=== PATIENT | female | born 1935 | race African-American/Black ===

== ENCOUNTER → 2016-11-15 | Outpatient (CLI) | payer OTHER ==
[~2016-11-15] VITALS: Ht 157.5 cm; Wt 93.6 kg
[~2016-11-15] MED LIST: BAYER CHEWABLE81 MG PO; CARVEDILOL12.5 MG PO; DURAGESIC1 EAC2 TD; FENTANYL PO; JANUVIA 50 MG T50 MG PO; LASIX 40 MG TAB40 M2 PO; NORCO 10-325 T1 EACH PO; NORVASC5 MG PO; ONDANSETRON HCL4 M2 PO; RENAL-VITE TAB0.8 MG PO; VENTOLIN HFA 1818 GM INH; VITAMIN D1000 UNI1 PO; VOLTAREN GEL 1100 G2 TOP; ZANTAC 150MG T150 MG PO; ZOCOR20 MG PO; [UNRECOGNIZED DRUG - OTHER] PO
--- NOTE | ~2016-11-15 | HPC ---
[facility] [address] [place] [address] PAIN MANAGEMENT CONSULTATION Name: ROSA AZAR Room #: REG MARI Dimple.#: [id number] Admission: 11/15/16 Attend Phys: Duong Schultz DO Discharge: Date of : 36 Report #: [id number] THIS REPORT FOR: //name// CC: Chaim Schultz HISTORY OF PRESENT ILLNESS: The patient is an 81-year-old female, new to the pain clinic at [place]. She prior apparently had been seen at [facility] as an in hospital patient by Dr. Candido Schultz. She presents to the pain clinic today to establish care at the pain clinic. The patient was admitted to [facility] sometime ago for pain primarily in the right shoulder. 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 She was given steroid injection by Orthopedics in the hospital with really nominal efficacy. Started on Duragesic at 12 mcg in the hospital, gradually titrating up to 25 and then for the past three weeks 37 mcg q. 72 hours (125 mcg patch and 112 mcg patch). With this, she has continued to take a little bit of hydrocodone 10/325, typically 1-3 tablets a day with moderate efficacy. She rates pain anywhere from a 4 to a "10+" on a 0-10 visual analog scale. Pain is exacerbated with any and all movement. She dialyses 3 times a week, the shunt is in her right arm. Shunt has been present there for 6 years and significantly predates the pain in the right shoulder. She notes the pain is worse on days of dialysis as they do have to move her right arm around. The daughter notes that the patient had a "hard" fall in August with significant ecchymosis and this seems to be about the time that the pain got worse. Currently, the patient notes she has pain with movement of the right upper extremity that is continuous, steady, constant, periodic, intermittent, gnawing, throbbing, sharp, stabbing, shooting, and aching. REVIEW OF SYSTEMS: Complete review of systems is attached to the chart is gone with the patient. She is , seen in the company of her daughter who is supportive; this is the youngest of 6 children. She does not smoke, drink alcohol to excess. History of longstanding diabetes, currently treated with Januvia. Chronic renal failure again dialyzing three times a week for many years. Has an albuterol inhaler that she uses for p.r.n. asthma, though she uses it fairly infrequently. Hypertension treated with amlodipine, carvedilol and Lasix. Dyslipidemia for which she takes simvastatin. She has had surgery in her knees, lumbar radiculopathy, a hysterectomy and the aforementioned shunt creation in the right upper arm. She is retired. She has been retired for 30 years. Pain impact score is 39/70. PHYSICAL EXAMINATION: GENERAL: Reveals a 5 feet tall, 200 pound female, BMI is 37.7 kilograms per meter squared. [address] [address] PAIN MANAGEMENT CONSULTATION Name: DOEROSA Room #: REG CLIan Baxter#: [id number] Admission: 11/15/16 Attend Phys: Duong Schultz DO Discharge: Date of : 36 Report #: [id number] VITAL SIGNS: Blood pressure is 148/68, pulse 67, respirations 16. Cranial nerves 2-12 are grossly intact. HEENT: Pupils equal, reactive to light and accommodation. Extraocular muscles are intact. She is alert and oriented to person, place and time, judged to be a reasonable historian. NECK: Cervical range of motion is modestly limited. Thyroid is modestly enlarged, no nodules noted. MUSCULOSKELETAL: Significant decreased range of motion in the right shoulder to abduction and extension. Upper arm biceps, triceps and brachioradialis as well as hand grasp strength is diminished on the right compared to the left. Difficult to tell if this is due to effort related to pain, but I do not believe there is a neurogenic component. Again, there is no neural tensioning symptoms, a negative Lhermitte's. Deep tendon reflexes for the biceps, triceps, brachioradialis appeared to be symmetric. She has marked thoracic kyphosis and endomorphic build. HEART: Regular rhythmical without murmur. LUNGS: Sounds are distant, but clear. EXTREMITIES: Lower extremity strength is symmetric at 3-4/5 to all muscle groups tested. She does have +1 to 2 pretibial edema bilaterally. SKIN integument shows some ecchymosis, otherwise intact. DIAGNOSTIC STUDIES: There are no recent diagnostic studies available at this time. ASSESSMENT: Chronic pain syndrome, DJD, right shoulder requiring complex medication management, history of chronic renal failure on dialysis. RECOMMENDATION: Long discussion with the patient and daughter today about therapeutic options. Again, I think 37 mg of Duragesic is appropriate, though we would be loathe to continue escalating opiate. At this point, if she starts to show failure or tolerance, I would recommend rotating to a different narcotic. Morphine does have some renally excreted metabolites, methadone may be a better option. We will continue hydrocodone 10/325, 1-3 tablets a day. We did talk at length about trialing some Voltaren gel topically. Again, the systemic absorption is fairly low at 6-7%. Generally contraindicated for renal compromise, though patient is essentially anephric, so I do not think there should be any discernible negative side effects from judicious use of Voltaren gel topically. The patient was given 1 month of current medication. I will follow up at that time for reevaluation. Thank you for allowing me to participate in the patient's care. I will keep you abreast of her progress. [facility] [address] [place] [address] PAIN MANAGEMENT CONSULTATION Name: ROSA AZAR Room #: REG [facility].#: [id number] Admission: 11/15/16 Attend Phys: Duong Schultz DO Discharge: Date of : 36 Report #: [id number] The patient was discharged in good and stable condition after a prolonged visit, greater than 45 minutes was spent with the patient and her daughter reviewing therapeutic options and discussing our plans of care. By: [id number] Duong Schultz DO /nt
[2016-11-15 13:11] VITALS: BP 148/68
== END ==
LOC: PAIN 07:06
DX: M25.511 Pain in right shoulder (principal); G89.4 Chronic pain syndrome; M19.90 Unspecified osteoarthritis, unspecified site; I12.0 Hypertensive chronic kidney disease with stage 5 chronic kidney disease or end stage renal disease; N18.6 End stage renal disease; Z99.2 Dependence on renal dialysis; Z79.899 Other long term (current) drug therapy

== ENCOUNTER → 2016-12-13 | Outpatient (CLI) | payer OTHER ==
[~2016-12-13] VITALS: Ht 157.5 cm; Wt 93.4 kg
[~2016-12-13] MED LIST changes: +FENTANYL PA25 MCG/HR TRANSDERM
--- NOTE | ~2016-12-13 | HPC ---
[facility] [address] [place] [address] PAIN MANAGEMENT CONSULTATION Name: ROSA AZAR Room #: REG MARI Sahil#: [id number] Admission: 12/13/16 Attend Phys: Duong Schultz DO Discharge: Date of : 36 Report #: [id number] THIS REPORT FOR: //name// CC: Chaim Schultz HISTORY OF PRESENT ILLNESS: The patient is a very pleasant 81-year-old female, being treated for bilateral shoulder DJD, right greater than left, chronic renal failure, chronic pain syndrome, lumbar radiculopathy, requiring complex medication management. Last seen in the pain clinic on 11/15/2016. We had continued Duragesic at 37 mcg q. 72 hours (one 12 mcg patch and one 25 mcg patch) q. 72 hours. Continued hydrocodone 10/325. The patient is averaging about 3 a day, anywhere from 2-4. Doing reasonably well with this medication. I gave her some topical Voltaren gel to use conservatively. She thinks it is helpful as well. She presents to pain clinic today with her daughter. They are planning on a road trip for 10 days, heading to [place], and then back to [place] before coming back to [place]. The patient does dialyze 3 times a week. Currently, she uses [facility]. They have scheduled their drive such that she will have dialysis throughout their trip. She notes that right shoulder injection by orthopedist, while she was an inpatient at [facility], did not afford much relief. Left shoulder is getting little worse. She has had another fall since we last saw her. She is somewhat caught herself with left shoulder. PHYSICAL EXAMINATION: Today shows an 81-year-old female, BMI is about 38 kilograms per meter squared. Right shoulder has diminished range of motion. Abduction is about 50 degrees. Left shoulder is diminished, but abduction is about 60 degrees. Passive rotation of both shoulders is modestly limited with pain to passive and active rotation to both sides. Otherwise, the patient is alert and oriented to person, place, and time. Judged to be a reasonable historian. No problems with daytime somnolence, mental acuity changes or constipation. ASSESSMENT: Bilateral shoulder degenerative joint disease, right shoulder is somewhat worse than the left, but left becoming little more problematic. Chronic renal failure requiring dialysis, lumbar radiculopathy, chronic pain syndrome, requiring complex medication management, stable on baseline medications. We reviewed the fact that opiate medications are being used to provide analgesia adequate to support activities of daily living, not attempting to achieve a specific pain score on the 0-10 Visual Analog Scale. The current opiate medications are providing sufficient analgesia to allow the patient to participate in activities of daily living. The patient is not exhibiting any [address] [address] PAIN MANAGEMENT CONSULTATION Name: JAMEE AZARSA Cho Room #: REG MARI Baxter#: [id number] Admission: 12/13/16 Attend Phys: Duong Schultz DO Discharge: Date of : 36 Report #: [id number] aberrant behavior suggestive of drug diversion. The patient is not having any adverse reactions to medications. The patient is not suffering from daytime somnolence or mental acuity changes. The patient is managing opiate-induced constipation with appropriate nnig-okm-xdbrwhe agents and dietary considerations. The patient was counseled on concern for caution with operating a motor vehicle while using opiate medications. A physical exam was performed and the patient's functional status was evaluated. All patients with back pain were advised against the bed rest greater than 4 days and were advised to return to normal activities. Pain score assessment was noted and the treatment plan was reviewed with the patient. All current medications, both prescribed and OTC were reviewed and reconciled on the electronic medical record. Tobacco screening was accomplished and smoking cessation was advised when indicated. BMI was noted and diet/exercise modification was recommended for all patients following outside normal parameters. I reviewed with the patient today their responsibilities to safeguard prescription medications, reviewed their responsibility to utilize medications only as prescribed by the physician. They are to seek and receive pain medications only from 1 physician group ( [facility]). They are to use 1 pharmacy and keep the clinic informed if they change pharmacies. Their responsibilities include making followup visits in a timely fashion and to avoid abrupt discontinuation of medication usage. Their responsibilities further include bringing their medications (bottles from the pharmacy with residual pills) to the visit for possible confirmation of pill counts and the patient understands it is their responsibility to submit to random drug screens to ensure both that the medications prescribed are present, and that no other controlled substances are present. All prescriptions provided today were generated electronically. RECOMMENDATION: 1. Continue Duragesic, 12 mcg and 25 mcg patches used concurrently q. 72 hours. I have taken the liberty of writing for 30 days of these. 2. Hydrocodone 10/325 limit up to 3 tablets a day, dispense 90 tablets. 3. Continue Voltaren gel topically, does not require renewal. We did talk about proceeding with the left shoulder joint injection under fluoroscopy. We also talked at length about balance exercises to be done daily, and range of motion for both shoulders. Given the road trip, we suggest that she continue her 81 mg aspirin. She is having some ongoing lower extremity edema. They are working with hemodialysis to lower her "dry weight" target. She does have +2 pretibial edema in the lower extremity. I talked about exercise and walking to try and mobilize lower extremity edema fluid. [facility] [address] [place] [address] PAIN MANAGEMENT CONSULTATION Name: ROSA AZAR Room #: REG [facility] M.R.#: [id number] Admission: 12/13/16 Attend Phys: Duong Schultz DO Discharge: Date of : 36 Report #: [id number] Discharged in good and stable condition. Follow up in 4 weeks for reevaluation. We had a moderately prolonged visit today, spent reviewing, concurrent issues including dialysis while traveling, continuing current baseline narcotics (fentanyl transcutaneous), p.r.n. hydrocodone. Judicious use of topical Voltaren gel, balance exercises, range of motion for the shoulder, and therapeutic options including left shoulder joint injection under fluoroscopy. The patient was discharged in good and stable condition, after a 25-minute visit, greater than 50% of this time spent counseling the patient. <ELECTRONICALLY SIGNED> By: Duong Schultz DO 12/17/16 0856 [id number] Duong Schultz DO /nt
[2016-12-13 13:05] VITALS: BP 154/75
== END | disposition home or self-care (01) ==
LOC: PAIN 06:44
DX: M19.012 Primary osteoarthritis, left shoulder (principal); M19.011 Primary osteoarthritis, right shoulder; M54.16 Radiculopathy, lumbar region; G89.4 Chronic pain syndrome; N18.9 Chronic kidney disease, unspecified

== ENCOUNTER → 2017-01-10 | Outpatient (CLI) | payer OTHER ==
[~2017-01-10] VITALS: Ht 152.4 cm; Wt 92.5 kg
[~2017-01-10] MED LIST changes: +LINZESS145 MCG PO
[2017-01-10 13:18] VITALS: BP 157/70
== END | disposition home or self-care (01) ==
LOC: PAIN 06:47
DX: M19.012 Primary osteoarthritis, left shoulder (principal); M19.011 Primary osteoarthritis, right shoulder; N18.9 Chronic kidney disease, unspecified; E66.9 Obesity, unspecified; Z68.39 Body mass index [BMI] 39.0-39.9, adult

== ENCOUNTER → 2017-03-18 | Outpatient (CLI) | payer OTHER ==
[~2017-03-18] VITALS: Ht 152.4 cm; Wt 91.4 kg
[~2017-03-18] MED LIST changes: +DURAGESIC1 EACH TRANSDERM; +MOVANTIK25 MG PO; +STOOL SOFTENER100 M1 PO
--- NOTE | ~2017-03-18 | HPC ---
[facility] [address] [place] [address] PAIN MANAGEMENT CONSULTATION Name: ROSA AZAR Room #: REG MARI Dimple.#: [id number] Admission: 03/18/17 Attend Phys: Duong Schultz DO Discharge: Date of : 36 Report #: [id number] THIS REPORT FOR: //name// CC: Chaim Schultz DATE OF SERVICE: 03/18/2017 The patient is an 81-year-old female typically treated for DJD, left greater than right shoulder, chronic renal failure requiring dialysis, axial back pain, morbid obesity requiring high risk complex medication management. Component of opiate-induced constipation. She has been continued on Duragesic 37 mcg (one 25 mcg patch and one 12 mcg patch) with hydrocodone 10/325 for breakthrough, typically on the days if she dialyzes. With opiate-induced constipation, we trialed Linzess at last visit. Unfortunately, this really did not afford significant relief. She returns to pain clinic today in the company of her daughter who is supportive. She notes pain is fairly nominal at present, 2.5 on a VAS, primarily right shoulder and arm, left shoulder, some axial back pain when she dialyzes. She notes medications quite helpful, but again, does complain of opiate-induced constipation. PHYSICAL EXAMINATION: Relatively unchanged, pleasant 81-year-old female. BMI is elevated at 39.3 kilograms per meter squared. Blood pressure 148/78, pulse 82, respirations are 22. Alert and oriented to person, place and time, judged to be a reasonable historian. Limited range of motion of the shoulders, diffuse axial back pain. Gait is little bit antalgic, little bit ataxic, but she appears stable. RECOMMENDATION: Discussion with the patient and her daughter today about therapeutic options. They have stopped using the [facility] and changed their pharmacy choice to ____. The pharmacist there suggested that she may use a single 37.5 mcg of Duragesic patch, I am happy to write for this, so I did tell the family that in the past, this has typically been a non-generic item and may require ____. We reviewed the fact that opiate medications are being used to provide analgesia adequate to support activities of daily living, not attempting to achieve a specific pain score on the 0-10 Visual Analog Scale. The current opiate medications are providing sufficient analgesia to allow the patient to participate in activities of daily living. The patient is not exhibiting any aberrant behavior suggestive of drug diversion. The patient is not having any adverse reactions to medications. The patient is not suffering from daytime somnolence or mental acuity changes. The patient is managing opiate-induced [address] [address] PAIN MANAGEMENT CONSULTATION Name: ROSA AZAR Room #: REG MARI Baxter#: [id number] Admission: 03/18/17 Attend Phys: Duong Schultz DO Discharge: Date of : 36 Report #: [id number] constipation with appropriate kgxv-zlg-uxffasv agents and dietary considerations. The patient was counseled on concern for caution with operating a motor vehicle while using opiate medications. A physical exam was performed and the patient's functional status was evaluated. All patients with back pain were advised against the bed rest greater than 4 days and were advised to return to normal activities. Pain score assessment was noted and the treatment plan was reviewed with the patient. All current medications, both prescribed and OTC were reviewed and reconciled on the electronic medical record. Tobacco screening was accomplished and smoking cessation was advised when indicated. BMI was noted and diet/exercise modification was recommended for all patients following outside normal parameters. I reviewed with the patient today their responsibilities to safeguard prescription medications, reviewed their responsibility to utilize medications only as prescribed by the physician. They are to seek and receive pain medications only from 1 physician group ( [facility]). They are to use 1 pharmacy and keep the clinic informed if they change pharmacies. Their responsibilities include making followup visits in a timely fashion and to avoid abrupt discontinuation of medication usage. Their responsibilities further include bringing their medications (bottles from the pharmacy with residual pills) to the visit for possible confirmation of pill counts and the patient understands it is their responsibility to submit to random drug screens to ensure both that the medications prescribed are present, and that no other controlled substances are present. All prescriptions provided today were generated electronically. ASSESSMENT: Degenerative joint disease affecting bilateral shoulders, left greater than right, axial back pain, morbid obesity, chronic renal failure, on dialysis requiring high risk complex medication management, component of opiate-induced constipation. RECOMMENDATIONS: 1. We will rotate to a single 37.5 mcg Duragesic patch, dispensed #10 patches q. 72 hours. 2. Continue hydrocodone 10/325 up to 3 a day, Voltaren gel topically. 3. I have also started the patient on Movantik, I gave him prescription for 25 mg tablet, dispensed #20 to be used if no bowel movement in 24 hours. 4. Continue regular use of stool softeners, Metamucil and Colace. 5. Discharged in good and stable condition. Follow up in 2 months for reevaluation. By: [id number] Duong Schultz, DO /nt
[2017-03-18 14:38] VITALS: BP 148/78
== END | disposition home or self-care (01) ==
LOC: PAIN 07:26
DX: Z76.0 Encounter for issue of repeat prescription (principal); T40.2X5D Adverse effect of other opioids, subsequent encounter; K59.09 Other constipation; M19.011 Primary osteoarthritis, right shoulder; M19.012 Primary osteoarthritis, left shoulder; M54.5 Low back pain; N18.9 Chronic kidney disease, unspecified; E66.01 Morbid (severe) obesity due to excess calories; Z79.891 Long term (current) use of opiate analgesic; Z68.39 Body mass index [BMI] 39.0-39.9, adult; Z99.2 Dependence on renal dialysis; Z79.82 Long term (current) use of aspirin; Z79.899 Other long term (current) drug therapy

== ENCOUNTER → 2017-07-31 | Outpatient (CLI) | payer OTHER ==
[~2017-07-31] MED LIST changes: +CYMBALTA30 MG PO; +DURAGESIC1 EAC2 TRANSDERM; +FENTANYL1 EAC4 TRANSDERM; +MOBIC7.5 MG PO
== END ==
LOC: HYPER 06:49
DX: E11.622 Type 2 diabetes mellitus with other skin ulcer (principal); L98.411 Non-pressure chronic ulcer of buttock limited to breakdown of skin; L89.322 Pressure ulcer of left buttock, stage 2; L89.312 Pressure ulcer of right buttock, stage 2; R53.83 Other fatigue; R60.1 Generalized edema; E78.5 Hyperlipidemia, unspecified; E11.22 Type 2 diabetes mellitus with diabetic chronic kidney disease; I13.2 Hypertensive heart and chronic kidney disease with heart failure and with stage 5 chronic kidney disease, or end stage renal disease; I50.9 Heart failure, unspecified; N18.6 End stage renal disease; Z99.2 Dependence on renal dialysis; I25.10 Atherosclerotic heart disease of native coronary artery without angina pectoris; Z86.718 Personal history of other venous thrombosis and embolism

== ENCOUNTER → 2017-08-02 | Outpatient (CLI) | payer OTHER ==
[~2017-08-02] VITALS: Ht 152.4 cm; Wt 90.4 kg
--- NOTE | ~2017-08-02 | HPC ---
[facility] [address] [place] [address] PAIN MANAGEMENT CONSULTATION Name: ROSA AZAR Room #: REG MARI Dimple.#: [id number] Admission: 08/02/17 Attend Phys: Duong Schultz DO Discharge: Date of : 36 Report #: [id number] THIS REPORT FOR: //name// CC: Chaim Schultz The patient is an 81-year-old female, prior seen in the pain clinic 05/30/2017, continued on Duragesic 37 mcg, hydrocodone 10/325 for breakthrough pain, Movantik for opiate-induced constipation. She has DJD bilateral shoulders, axial back pain, chronic renal failure requiring dialysis, morbid obesity requiring high risk complex medication management. Last buccal drug swab 05/30/2017 was positive for hydrocodone and fentanyl as expected. No untoward findings were found. Returns to pain clinic today noting pain remains 8 on VAS, primarily RSD bilateral shoulders, left greater than right. PHYSICAL EXAMINATION: Vital signs stable. BMI elevated at 38.9 kilograms per meter squared. She did trip once in the past 3 months, simply "moving too quickly." She does not use a cane for balance. Fall seemed to be a unique issue. Legs do not "give out." She does have some hypertension, medicine list was reconciled today. Opiate consent to treat contract was signed 01/10/2017. Opiate risk assessment tool scores are in the low range. Pain impact score, however, is fairly high 65/70. She does have a new lesion in the sacral area. She started on a Silvadene with morphine topical compound. She is seeing the wound clinic. Does have some myofascial pain component with tenderness in the trapezius, splenius capitis and deltoid muscles. Again, pain is 8 on VAS. We reviewed the fact that opiate medications are being used to provide analgesia adequate to support activities of daily living, not attempting to achieve a specific pain score on the 0-10 Visual Analog Scale. The current opiate medications are providing sufficient analgesia to allow the patient to participate in activities of daily living. The patient is not exhibiting any aberrant behavior suggestive of drug diversion. The patient is not having any adverse reactions to medications. The patient is not suffering from daytime somnolence or mental acuity changes. The patient is managing opiate-induced constipation with appropriate ttyy-vph-myrpfdb agents and dietary considerations. The patient was counseled on concern for caution with operating a motor vehicle while using opiate medications. A physical exam was performed and the patient's functional status was evaluated. All patients with back pain were advised against the bed rest greater than 4 days and were advised to return to normal activities. Pain score assessment was noted and the treatment plan was reviewed with the patient. All current [address] [address] PAIN MANAGEMENT CONSULTATION Name: ROSA AZAR Room #: REG MARI Baxter#: [id number] Admission: 08/02/17 Attend Phys: Duong Schultz DO Discharge: Date of : 36 Report #: [id number] medications, both prescribed and OTC were reviewed and reconciled on the electronic medical record. Tobacco screening was accomplished and smoking cessation was advised when indicated. BMI was noted and diet/exercise modification was recommended for all patients following outside normal parameters. I reviewed with the patient today their responsibilities to safeguard prescription medications, reviewed their responsibility to utilize medications only as prescribed by the physician. They are to seek and receive pain medications only from 1 physician group ( [facility]). They are to use 1 pharmacy and keep the clinic informed if they change pharmacies. Their responsibilities include making followup visits in a timely fashion and to avoid abrupt discontinuation of medication usage. Their responsibilities further include bringing their medications (bottles from the pharmacy with residual pills) to the visit for possible confirmation of pill counts and the patient understands it is their responsibility to submit to random drug screens to ensure both that the medications prescribed are present, and that no other controlled substances are present. All prescriptions provided today were generated electronically. ASSESSMENT: Degenerative joint disease affecting bilateral shoulders, myofascial pain component, history of axial back pain. Comorbidity includes morbid obesity, chronic renal failure requiring dialysis, opioid-induced constipation now with a small decubitus ulcer. RECOMMENDATION: Continue current medication including hydrocodone 10/325, we will increase from 90-120 tablets. We will add Cymbalta to help with myofascial pain component. Continue Duragesic 37 mcg. I have taken the liberty of writing for 2 months of current medication. Follow up at that time. Hopefully, we can wean back to 90 on hydrocodone. Discharged in good stable condition after moderately prolonged visit, 25+ minutes were spent counseling the patient, reviewing interval history (decubitus ulcer) and a new diagnosis (myofascial pain component). Follow up in 2 months to evaluate efficacy of medication changes. <ELECTRONICALLY SIGNED> By: Duong Schultz DO 08/05/17 0715 [id number] Duong Schultz DO /nt
[2017-08-02 10:46] VITALS: BP 125/68
== END ==
LOC: PAIN 07:06
DX: M19.012 Primary osteoarthritis, left shoulder (principal); M19.011 Primary osteoarthritis, right shoulder; E66.01 Morbid (severe) obesity due to excess calories; L89.899 Pressure ulcer of other site, unspecified stage; Z79.891 Long term (current) use of opiate analgesic

== ENCOUNTER → 2017-09-10 | Outpatient (CLI) | payer OTHER | LOC: HYPER 08-29 06:56 | DX: E11.622 Type 2 diabetes mellitus with other skin ulcer (principal); L98.411 Non-pressure chronic ulcer of buttock limited to breakdown of skin; L89.322 Pressure ulcer of left buttock, stage 2; L89.312 Pressure ulcer of right buttock, stage 2; E11.22 Type 2 diabetes mellitus with diabetic chronic kidney disease; I13.2 Hypertensive heart and chronic kidney disease with heart failure and with stage 5 chronic kidney disease, or end stage renal disease; I50.9 Heart failure, unspecified; N18.6 End stage renal disease; Z99.2 Dependence on renal dialysis; R53.83 Other fatigue; E78.5 Hyperlipidemia, unspecified; M25.50 Pain in unspecified joint; M15.9 Polyosteoarthritis, unspecified; R60.1 Generalized edema; K21.9 Gastro-esophageal reflux disease without esophagitis; I25.10 Atherosclerotic heart disease of native coronary artery without angina pectoris ==